=== PATIENT | male | born 1990 | race Caucasian/White ===

== ENCOUNTER 2023-03-29 19:12 | Emergency (ER) | payer BC, SELFPAY ==
--- NOTE | ~2023-03-29 | CT_ITS ---
EXAMINATION: CT lumbar spine wo con DATE: 03/29/2023 22:14 INDICATION: Low back pain after sneezing TECHNIQUE: Computed tomography (CT) of the lumbar spine was performed without intravenous contrast. A utomated exposure control and iterative reconstruction technique were employed. The dose-length produ ct was 1027.91 mGy-cm. COMPARISON: None FINDINGS: Alignment is normal. L4 limbus vertebra with unfused anterosuperior apophyseal center to the vertebra l body. Chronic appearing minimal anterior wedging at T12, L1 and L2. No acute fractures. There are d isc bulges at L2-L3 through L5-S1 resulting in only minimal to mild central canal stenosis. There are multiple Schmorl's nodes involving each endplates in the inferior endplate of T11 through the superi or endplate of S1. Mild disc height loss at L3-L4. Paravertebral soft tissues are unremarkable. The f ollowing disc levels are specifically discussed: T11-T12: The disc does not extend beyond the endplate margin. There is mild bilateral facet joint ost eoarthritis. There is no neural foraminal stenosis. There is no central canal stenosis. T12-L1: The disc does not extend beyond the endplate margin. There is no facet joint osteoarthritis. There is no neural foraminal stenosis. There is no central canal stenosis. L1-L2: The disc does not extend beyond the endplate margin. There is mild bilateral facet joint osteo arthritis. There is no neural foraminal stenosis. There is no central canal stenosis. L2-L3: Disc is mildly bulging. There is mild right and minimal left facet joint osteoarthritis. There is mild bilateral neural foraminal stenosis. There is minimal central canal stenosis. L3-L4: Disc is bulging. There is mild bilateral facet joint osteoarthritis. There is mild bilateral n eural foraminal stenosis. There is mild central canal stenosis. L4-L5: Disc is bulging. There is mild right and minimal left facet joint osteoarthritis. There is mil d right and no left neural foraminal stenosis. There is mild central canal stenosis. L5-S1: Disc is mildly bulging. There is mild bilateral facet joint osteoarthritis. There is no neural foraminal stenosis. There is no central canal stenosis. IMPRESSION: 1. Mild lumbar spondylosis. No acute osseous abnormality. Reviewed, dictated and finalized at location A.
[2023-03-29 19:14] VITALS: BP 139/111; PULSE 91; RESP 17; TEMP 36.9; O2SAT 99
--- NOTE | 2023-03-29 22:01 | ED.BACK ---
HPI - Back Pain/Injury General Chief Complaint: Back Pain/Injury Stated Complaint: back pain Time Seen by Provider: 03/29/23 21:22 History of Present Illness HPI Narrative: 32-year-old male reports for evaluation of low back pain that started 4 hours prior to arrival. Patient states he was using the restroom, turned and sneezed and had a sudden sharp pain in his low back as he was rotating that took him to the ground . States since then he has had difficulty with range of motion, more so with lateral and frontal flexion. Denies pain rating down his legs, numbness, tingling, loss of bowel or bladder control or retention, saddle anesthesia, fever, IV drug use, use of steroids or immunosuppressants, recent back procedures. Denies urinary complaints. States he is not having symptoms prior to the incident. States he is not taking anything for pain. Related Data Allergies Allergy/AdvReac Type Severity Reaction Status Date / Time No Known Allergies Allergy Verified 10/09/17 02:41 Review of Systems Review of Systems: CONSTITUTIONAL: Denies fever, chills EYES: Denies visual changes, redness, or discharge. ENT: Denies rhinorrhea, congestion, sore throat, or otalgia. CARDIOVASCULAR: Denies chest pain, palpitations, or edema. RESPIRATORY: Denies cough or dyspnea. GASTROINTESTINAL: Denies abdominal pain, nausea, vomiting, or diarrhea. GENITOURINARY: Denies dysuria or hematuria. SKIN: Denies rash or itching. MUSCULOSKELETAL: See HPI NEUROLOGIC: Denies headache, numbness, dizziness, or weakness. PSYCHIATRIC: Denies anxiety or depression. Exam Narrative: GENERAL: Well-appearing, in no acute distress. NECK: Supple. No midline cervical tenderness, step-offs or deformities. BACK: Midline tenderness to the lumbar spine and paraspinous muscles without step-offs, tenderness or deformities. No tenderness to the thoracic spine. No overlying skin changes. Full ROM of back with increased pain with lateral flexion. CHEST: No respiratory distress. Clear to auscultation, no adventitious breath sounds. HEART: Regular rate and rhythm. No murmur heard. Normal peripheral pulses. EXTREMITIES: Normal range of motion. No edema.5/5 strength to BLE. DP pulses 2+. Sensation intact throughout. No saddle anesthesia. Negative seated straight legs bilaterally. No overlying skin changes. SKIN: Warm, dry, no rash. NEURO: No focal deficits. Alert and oriented x3. PSYCH: Normal mood and affect. Course Vital Signs Vital signs: Vital Signs Temperature 98.4 F 03/29/23 19:14 Pulse Rate 91 03/29/23 19:14 Respiratory Rate 17 03/29/23 19:14 Blood Pressure 139/111 H 03/29/23 19:14 Pulse Oximetry 99 03/29/23 19:14 Oxygen Delivery Room Air 03/29/23 19:14 Temperature 98.4 F 03/29/23 19:14 Pulse Rate 88 03/29/23 23:08 Respiratory Rate 20 03/29/23 23:08 Blood Pressure 132/78 03/29/23 23:08 Pulse Oximetry 99 03/29/23 23:08 Oxygen Delivery Room Air 03/29/23 19:14 MDM - Back Pain/Injury MDM Narrative Medical decision making narrative: This is a 32-year-old male reports for evaluation of low back pain that started suddenly after he rotated his torso and sneezes. He is well-appearing and neurovascularly intact. Vital stable. There is tenderness to the midline lumbar spine without crepitus, step-offs or deformities. CT lumbar spine reveals mild lumbar spondylosis, no acute osseous abnormality. No red flag back pain signs. Imaging discussed with the patient. Patient received Flexeril and ibuprofen in the ED for pain control. Flexeril and naproxen sent to pharmacy. Advised follow-up in the next week with primary care, referral provided. Strict ED return precautions were discussed. Patient agrees with the plan and verbalizes understanding. He is discharged in stable condition. Medical Records Attestation: I reviewed the patient's medical records. Imaging Data Attestation: I personally reviewed and interpreted this im
[2023-03-29] MEDS: CYCLOBENZAPRINE HCL 10 MG TABLET PO (22:18)
[2023-03-29] MEDS: IBUPROFEN 600 MG TABLET PO (22:18)
[2023-03-29 23:08] VITALS: BP 132/78; PULSE 88; RESP 20; O2SAT 99
== END 2023-03-29 23:08 | disposition home or self-care (01) ==
PROVIDERS: Emergency Provider Physician Assistant
DX: S39.012A Strain of muscle, fascia and tendon of lower back, initial encounter (principal); X50.9XXA Other and unspecified overexertion or strenuous movements or postures, initial encounter
CPT/HCPCS: 72131; 99284; A9270